=== PATIENT | female | born 1955 | race African-American/Black ===

== ENCOUNTER 2023-11-12 07:33 | Inpatient (IN) | payer MEDICARE, OTHER ==
[~2023-11-12] VITALS: Ht 171.4 cm; Wt 98.4 kg
[2023-11-12 08:00] VITALS: BP 154/76; TEMP 98.1; O2SAT 99
[2023-11-12] MEDS ORDERED: ZOLPIDEM TARTRATE 5 MG TABLET PO PRN (08:30)
[2023-11-12] MEDS ORDERED: MAGNESIUM HYDROXIDE 30 ML UDC PO PRN (08:30)
[2023-11-12] MEDS ORDERED: MAG HYDROX/AL HYDROX/SIMETH 30 ML UDC PO PRN (08:30)
[2023-11-12] MEDS ORDERED: Z GUARD REMEDY 4 OZ OINT TP PRN (09:00)
[2023-11-12] MEDS ORDERED: DEXTROSE 50%-WATER 50 ML DISP.SYRIN IV PRN (09:00)
[2023-11-12] MEDS ORDERED: ANAS1TAB50 PO (09:14)
[2023-11-12] MEDS ORDERED: ASPI-1420 PO (09:14)
[2023-11-12] MEDS ORDERED: LOSA100T3 PO (09:14)
[2023-11-12] MEDS ORDERED: CARI350T27 PO (09:14)
[2023-11-12] MEDS ORDERED: CARV25TA2 PO (09:14)
[2023-11-12] MEDS ORDERED: CHOL200010 PO (09:14)
[2023-11-12] MEDS ORDERED: PREG100C PO (09:14)
[2023-11-12] MEDS ORDERED: [UNRECOGNIZED DRUG - OTHER] PO (09:14)
[2023-11-12] MEDS ORDERED: AMLO-212 PO (09:14)
[2023-11-12] MEDS ORDERED: INSU3INS9 SQ (09:14)
[2023-11-12] MEDS ORDERED: NALO4SPR NS (09:14)
[2023-11-12] MEDS ORDERED: CALC-494 PO (09:14)
[2023-11-12] MEDS ORDERED: FAMO20TA29 PO (09:14)
[2023-11-12] MEDS ORDERED: ZOLP10TA2 PO (09:14)
[2023-11-12] MEDS ORDERED: ONDA-97 PO (09:14)
[2023-11-12] MEDS ORDERED: HYDR-3980 PO (09:14)
[2023-11-12] MEDS ORDERED: ALBU18HF2 IH (09:14)
[2023-11-12] MEDS ORDERED: OXYC15TA2 PO (09:14)
[2023-11-12] MEDS: CARISOPRODOL 350 MG TABLET PO SCH (10:08)
[2023-11-12] MEDS: diphenhydrAMINE HCL 25 MG CAPSULE PO PRN (10:55)
[2023-11-12] MEDS: BLOOD SUGAR DIAGNOSTIC 1 EACH STRIP IN SCH (11:43)
[2023-11-12] MEDS: INSULIN REGULAR, HUMAN 100 UNIT/ML 3 ML VIAL SQ PRN (11:49)
[2023-11-12] MEDS ORDERED: HOME MED MISCELLANEOUS XX SCH (12:00)
[2023-11-12] MEDS ORDERED: NALOXONE HCL 0.4 MG/ML AMPUL IV PRN (12:00)
[2023-11-12] MEDS: LOSARTAN POTASSIUM 50 MG TABLET PO SCH (12:15)
[2023-11-12] MEDS: CARVEDILOL 12.5 MG TABLET PO SCH (12:15)
[2023-11-12] MEDS: HYDROCODONE/APAP 10/325MG TABLET PO PRN (12:16)
[2023-11-12 14:14] LABS: BASOPHILS % (AUTO) 0.7 % (0.0-2.0); EOSINOPHILS # (AUTO) 0.2 K/uL (0.0-0.7); EOSINOPHILS % (AUTO) 3.8 % (0.0-6.0); HEMATOCRIT 29 % (33-45); HEMOGLOBIN 9.6 g/dL (11.5-14.8); LYMPHOCYTES # (AUTO) 1.4 K/uL (0.8-4.8); MEAN CORPUSCULAR HEMOGLOBIN 26 PG (26.0-33.0); MEAN CORPUSCULAR HGB CONC 33 g/dl (31.0-36.0); MEAN CORPUSCULAR VOLUME 80 fL (82-100); MONOCYTES # (AUTO) 0.7 K/uL (0.1-1.30); MONOCYTES % (AUTO) 11.6 % (2.0-12.0); NEUTROPHILS # (AUTO) 3.4 K/uL (1.8-8.9); NEUTROPHILS % (AUTO) 59.9 % (43.0-81.0); PLATELET COUNT (AUTO) 175 K/uL (150-450); RED BLOOD CELL COUNT(AUTO) 3.65 MIL/uL (4.0-5.2); RED CELL DISTRIBUTION WIDTH 20.2 % (11.5-15.0); WHITE BLOOD COUNT (AUTO) 5.7 K/uL (4.3-11.0)
[2023-11-12 14:21] LABS: ALBUMIN 2.6 g/dL (3.4-5.0); BILIRUBIN,TOTAL 0.2 mg/dL (0.2-1.0); CALCIUM, SERUM 8.1 mg/dL (8.5-10.1); CREATININE 1.7 mg/dL (0.6-1.3); PHOSPHORUS 2.8 mg/dL (2.5-4.9); POTASSIUM 3.4 mmol/L (3.5-5.1); TOTAL PROTEIN, SERUM 6.4 g/dL (6.4-8.2)
[2023-11-12] MEDS: POTASSIUM CHLORIDE 10 MEQ TABLET.SA PO ONE (15:37)
[2023-11-12] MEDS: ACETAMINOPHEN 325 MG TABLET PO PRN (15:45)
[2023-11-12 16:00] VITALS: BP 136/76; TEMP 98.2; O2SAT 98
[2023-11-12 16:46] LABS: CREATININE, URINE 51.7 MG/DL (30.0-125.0); URINE TOTAL PROTEIN 30.3 mg/dL (0-11.9)
[2023-11-12] MEDS ORDERED: CLONIDINE HCL 0.1 MG TABLET PO PRN (17:00)
[2023-11-12] MEDS ORDERED: CARVEDILOL 12.5 MG TABLET PO SCH (17:00)
[2023-11-12] MEDS: PREGABALIN 100 MG CAPSULE PO SCH (17:23)
[2023-11-12 17:27] LABS: APPEARANCE,URINE CLEAR (CLEAR); BILIRUBIN,URINE NEGATIVE (NEGATIVE); BLOOD, URINE NEGATIVE Ery/uL (NEGATIVE); COLOR,URINE YELLOW (YELLOW); KETONES,URINE NEGATIVE (NEGATIVE); LEUKOCYTE ESTERASE ,URINE NEGATIVE (NEGATIVE); NITRITE, URINE NEGATIVE (NEGATIVE); PH,URINE 6.5 (5.0-8.0); PROTEIN,URINE TRACE mg/dl (NEGATIVE); UGLUCOSE TRACE mg/dL (NEGATIVE); UROBILINOGEN,URINE 0.2 EU/dL (0.2)
[2023-11-12] MEDS: AMLODIPINE BESYLATE 5 MG TABLET PO SCH (17:27)
[2023-11-12 17:33] LABS: ADD URINE CULTURE NO; BACTERIA,URINE None seen /HPF (None Seen); MUCUS,URINE Few /LPF (None Seen); RBC,URINE 0-2 /HPF (0-2); SQUAMOUS EPITHELIAL CELL,UR 0-2 /HPF (None Seen); WBC,URINE 0-2 /HPF (0-3)
[2023-11-12 17:41] LABS: EOSINOPHIL,URINE None Seen
[2023-11-12] MEDS: IV NS 0.9% 1,000 ML IV PRN (19:25)
[2023-11-12] MEDS: HYDROMORPHONE 1 MG/1 ML DISP.SYRIN IV PRN (19:36)
[2023-11-12 20:00] VITALS: BP 114/70; TEMP 98.2; O2SAT 96
[2023-11-12] MEDS: CALCIUM CARBONATE 500 MG TAB.CHEW PO SCH (21:52)
[2023-11-12] MEDS: hydrALAZINE HCL 25 MG TABLET PO SCH (21:53)
[2023-11-12] MEDS ORDERED: AMLODIPINE BESYLATE 5 MG TABLET PO SCH (22:00)
[2023-11-12] MEDS: ZOLPIDEM TARTRATE 10 MG TABLET PO PRN (23:12)
[2023-11-13] VITALS (7 sets, daily range): BP systolic 108–139; BP diastolic 63–86; TEMP 97.4–98.4; O2SAT 95–99
[2023-11-13 07:23] LABS: EOSINOPHILS # (AUTO) 0.2 K/uL (0.0-0.7); EOSINOPHILS % (AUTO) 4.8 % (0.0-6.0); HEMATOCRIT 32 % (33-45); HEMOGLOBIN 10.2 g/dL (11.5-14.8); LYMPHOCYTES # (AUTO) 1.1 K/uL (0.8-4.8); LYMPHOCYTES % (AUTO) 26.1 % (20.0-44.0); MEAN CORPUSCULAR HEMOGLOBIN 26 PG (26.0-33.0); MEAN CORPUSCULAR HGB CONC 32 g/dl (31.0-36.0); MEAN CORPUSCULAR VOLUME 83 fL (82-100); MONOCYTES # (AUTO) 0.5 K/uL (0.1-1.30); MONOCYTES % (AUTO) 10.9 % (2.0-12.0); NEUTROPHILS # (AUTO) 2.5 K/uL (1.8-8.9); NEUTROPHILS % (AUTO) 57.2 % (43.0-81.0); PLATELET COUNT (AUTO) 163 K/uL (150-450); RED BLOOD CELL COUNT(AUTO) 3.89 MIL/uL (4.0-5.2); RED CELL DISTRIBUTION WIDTH 20.5 % (11.5-15.0); WHITE BLOOD COUNT (AUTO) 4.4 K/uL (4.3-11.0)
[2023-11-13 07:49] LABS: ALBUMIN 2.4 g/dL (3.4-5.0); BILIRUBIN,TOTAL 0.2 mg/dL (0.2-1.0); CALCIUM, SERUM 7.5 mg/dL (8.5-10.1); CREATININE 1.7 mg/dL (0.6-1.3); MAGNESIUM 2.2 mg/dL (1.8-2.4); PHOSPHORUS 3.2 mg/dL (2.5-4.9); POTASSIUM 3.5 mmol/L (3.5-5.1); TOTAL PROTEIN, SERUM 6.3 g/dL (6.4-8.2)
[2023-11-13 08:29] LABS: THYROID STIMULATING HORMONE 3.03 uIU/mL (0.358-3.74)
[2023-11-13] MEDS: ASPIRIN EC 81 MG TABLET.DR PO SCH (08:59)
[2023-11-13] MEDS: ANASTROZOLE 1 MG TABLET PO SCH (08:59)
[2023-11-13] MEDS: CHOLECALCIFEROL 1,000 UNIT TABLET (VIT D3) PO SCH (09:00)
[2023-11-13] MEDS ORDERED: LOSARTAN POTASSIUM 50 MG TABLET PO SCH (09:00)
[2023-11-13] MEDS: HYDROMORPHONE 1 MG/1 ML DISP.SYRIN IV PRN (17:56)
[2023-11-14 03:34] VITALS: BP 152/82; O2SAT 99
[2023-11-14 06:49] LABS: BASOPHILS % (AUTO) 0.7 % (0.0-2.0); EOSINOPHILS # (AUTO) 0.2 K/uL (0.0-0.7); EOSINOPHILS % (AUTO) 3.8 % (0.0-6.0); HEMATOCRIT 31 % (33-45); HEMOGLOBIN 10.1 g/dL (11.5-14.8); LYMPHOCYTES # (AUTO) 1.5 K/uL (0.8-4.8); LYMPHOCYTES % (AUTO) 23.6 % (20.0-44.0); MEAN CORPUSCULAR HEMOGLOBIN 26 PG (26.0-33.0); MEAN CORPUSCULAR HGB CONC 32 g/dl (31.0-36.0); MEAN CORPUSCULAR VOLUME 81 fL (82-100); MONOCYTES # (AUTO) 0.6 K/uL (0.1-1.30); NEUTROPHILS # (AUTO) 3.8 K/uL (1.8-8.9); NEUTROPHILS % (AUTO) 61.9 % (43.0-81.0); PLATELET COUNT (AUTO) 173 K/uL (150-450); RED BLOOD CELL COUNT(AUTO) 3.83 MIL/uL (4.0-5.2); RED CELL DISTRIBUTION WIDTH 20.8 % (11.5-15.0); WHITE BLOOD COUNT (AUTO) 6.2 K/uL (4.3-11.0)
[2023-11-14 06:50] LABS: CALCIUM, SERUM 8.5 mg/dL (8.5-10.1); CREATININE 1.6 mg/dL (0.6-1.3)
[2023-11-14 08:00] VITALS: BP 148/77; TEMP 98.4; O2SAT 98
[2023-11-14] MEDS ORDERED: NALOXONE HCL 0.4 MG/ML AMPUL IV PRN (08:30)
[2023-11-14] MEDS ORDERED: oxyCODONE HCL SR 10MG TAB.SR.12H PO PRN (08:30)
[2023-11-14 09:09] LABS: PTH, INTACT 103 pg/mL (15-65)
[2023-11-14] MEDS: HYDROMORPHONE 1 MG/1 ML DISP.SYRIN IV PRN (10:05)
[2023-11-14] MEDS: [UNRECOGNIZED DRUG - OTHER] PO SCH (12:14)
[2023-11-14] MEDS: oxyCODONE IR immediate release 5 MG TABLET PO PRN ×2 (12:20→20:13)
[2023-11-14 16:00] VITALS: BP 131/74; TEMP 98.6; O2SAT 98
[2023-11-14 20:03] VITALS: BP 142/76; TEMP 98.1; O2SAT 99
[2023-11-14 21:42] VITALS: BP 126/68; O2SAT 99
[2023-11-15 06:07] LABS: *SPE A/G RATIO 0.9 (0.7-1.7); *SPE ALBUMIN 2.8 g/dL (2.9-4.4); *SPE ALPHA-1-GLOBULIN 0.3 g/dL (0.0-0.4); *SPE ALPHA-2-GLOBULIN 0.8 g/dL (0.4-1.0); *SPE BETA GLOBULIN 1.1 g/dL (0.7-1.3); *SPE M-SPIKE Not Observed g/dL (Not Observed); *SPE PROTEIN TOTAL 5.8 g/dL (6.0-8.5); *SPEGAMMA GLOBULIN 0.8 g/dL (0.4-1.8)
[2023-11-15 07:08] LABS: CALCIUM, SERUM 8.5 mg/dL (8.5-10.1); CREATININE 1.5 mg/dL (0.6-1.3)
[2023-11-15 08:00] VITALS: BP 154/86; TEMP 98.2; O2SAT 98
[2023-11-15] MEDS: LORATADINE 10 MG TABLET PO SCH (08:54)
[2023-11-15] MEDS: ONDANSETRON HCL/PF 4 MG/2 ML VIAL IVP PRN (08:54)
[2023-11-15] MEDS ORDERED: diphenhydrAMINE HCL 50 MG/ML VIAL IV PRN (09:00)
[2023-11-15 16:00] VITALS: BP 126/69; TEMP 98.2; O2SAT 98
[2023-11-15 16:54] VITALS: BP 126/69
== END 2023-11-15 18:10 | disposition home health service (06) | DRG 683 ==
LOC: TELE 07:33 → MED 11-13 13:28
PROVIDERS: ADMIT Nurse Practitioner Acute Care; ATTEND Nurse Practitioner Acute Care
DX: N17.0 Acute kidney failure with tubular necrosis (principal); C79.51 Secondary malignant neoplasm of bone; E87.1 Hypo-osmolality and hyponatremia; I50.32 Chronic diastolic (congestive) heart failure; N13.1 Hydronephrosis with ureteral stricture, not elsewhere classified; E11.65 Type 2 diabetes mellitus with hyperglycemia; C50.911 Malignant neoplasm of unspecified site of right female breast; F03.90 Unspecified dementia, unspecified severity, without behavioral disturbance, psychotic disturbance, mood disturbance, and anxiety; I11.0 Hypertensive heart disease with heart failure; Z96.651 Presence of right artificial knee joint; I25.2 Old myocardial infarction; D63.8 Anemia in other chronic diseases classified elsewhere; Z79.4 Long term (current) use of insulin; Z68.33 Body mass index [BMI] 33.0-33.9, adult; Z51.5 Encounter for palliative care; M19.90 Unspecified osteoarthritis, unspecified site; K44.9 Diaphragmatic hernia without obstruction or gangrene; E78.5 Hyperlipidemia, unspecified; E66.09 Other obesity due to excess calories; G89.3 Neoplasm related pain (acute) (chronic); I25.10 Atherosclerotic heart disease of native coronary artery without angina pectoris; Z92.21 Personal history of antineoplastic chemotherapy
CPT/HCPCS: 36415; 76770-TC; 80048-TC; 80053-TC; 80061-TC; 81001; 82550-TC; 82570-TC; 82962-TC; 83735-TC; 83970; 84100-TC; 84155; 84165; 84300-TC; 84443-TC; 85025-TC; 93307-TC; 97110-TC; 97116-TC; 97530-TC; A4223; G0378; J1170; J1815; J2405; J7030; Q0163